=== PATIENT | female | born 1960 | race Caucasian/White ===

== ENCOUNTER → 2020-08-22 | Outpatient (CLI) | payer BC ==
[2014-07-27 05:59] VITALS: BP 147/87
--- NOTE | 2020-08-22 12:51 | KCIC ---
INDICATION: Screening for osteopenia/osteoporosis. Postmenopausal evaluation. COMPARISON: None. TECHNIQUE: Bone densitometry was performed through the lumbar spine and proximal femur. IMPRESSION: Lumbar Spine: BMD: 1.0 T-Score: -0.3 Range: Normal Proximal Femur: BMD: 0.95 T-Score: 0.1 Range: Normal World Health Organization Criteria for Bone Density: T-Score: > -1.0: Normal Range < -1.0 to -2.5: Osteopenic Range < -2.5: Osteoporotic Range Electronically signed by: Jan Espinoza MD (08/22/2020 12:48 PM) [id number]
== END ==
LOC: KCIC DEXA 11:15
PROVIDERS: ATTEND Nurse Practitioner Gerontology
DX: Z78.0 Asymptomatic menopausal state (principal)
CPT/HCPCS: 77080

== ENCOUNTER → 2020-10-02 | Outpatient (CLI) | payer BC ==
[2014-07-27 05:59] VITALS: BP 147/87
[~2020-10-02] MED LIST: ASCO500C PO; CALC500T54 PO; DIPH25CA58 PO; FERR-36 PO; FLUO20CA20 PO; LIALDA1.2 GM PO; TELM40TA7 PO; VITA1CAP PO
== END ==
LOC: LAB 13:52
PROVIDERS: ATTEND Obstetrics & Gynecology
DX: Z01.812 Encounter for preprocedural laboratory examination (principal); Z20.822 Contact with and (suspected) exposure to COVID-19
CPT/HCPCS: U0003; U0005

== ENCOUNTER 2020-10-05 07:44 | Day surgery (SDC) | payer BC ==
[~2020-10-05] VITALS: Ht 152.4 cm; Wt 66.0 kg
[~2020-10-05 07:44] MED LIST changes: -ASCO500C PO; -CALC500T54 PO; -DIPH25CA58 PO; -FERR-36 PO; -FLUO20CA20 PO; +HYDROmorphone 2 MG/ML VIAL IVP PRN; +IV RINGERS,LACTATED 1000ML 1,000 ML IV SCH; -LIALDA1.2 GM PO; +MORPHINE SULFATE 2 MG/ML VIAL. IVP PRN; +PROCHLORPERAZINE 10 MG/2 ML VIAL. IVP PRN; -TELM40TA7 PO; -VITA1CAP PO; +ceFAZolin SODIUM IV Push 1 GM VIAL. IVP PRN; +fentaNYL PF VIAL 100 MCG/2 ML VIAL IVP PRN
[2020-10-05] MEDS ORDERED: LIALDA1.2 GM PO (08:38)
[2020-10-05] MEDS ORDERED: TELM40TA7 PO (08:40)
[2020-10-05] MEDS ORDERED: ASCO500C PO (08:41)
[2020-10-05] MEDS ORDERED: FLUO20CA20 PO (08:41)
[2020-10-05] MEDS ORDERED: FERR-36 PO (08:42)
[2020-10-05] MEDS ORDERED: MIDAZOLAM HCL/PF 2 MG/2 ML VIAL. ONE (08:46)
[2020-10-05] MEDS ORDERED: SEVOFLURANE 31 TO 60 MINUTES. IH ONE (08:46)
[2020-10-05] MEDS ORDERED: ONDANSETRON PF 4 MG/2 ML VIAL. ONE (08:47)
[2020-10-05] MEDS ORDERED: LIDOCAINE 2% PF 5 ML VIAL. ONE (08:47)
[2020-10-05] MEDS ORDERED: fentaNYL PF VIAL 100 MCG/2 ML VIAL ONE (08:47)
[2020-10-05] MEDS ORDERED: VITA1CAP PO (08:47)
[2020-10-05] MEDS ORDERED: PROPOFOL 10 MG/ML (20ML) VIAL. IV ONE (08:47)
[2020-10-05] MEDS ORDERED: DEXAMETHASONE SOD PHOS 4 MG/ML VIAL ONE (08:47)
[2020-10-05] MEDS ORDERED: CALC500T54 PO (08:47)
[2020-10-05] MEDS ORDERED: DIPH25CA58 PO (08:49)
[2020-10-05] MEDS ORDERED: ePHEDrine PF IN SALINE 50 MG/10 ML SYRINGE. IV ONE (09:55)
--- NOTE | 2020-10-05 10:47 | PDOC ---
BRIEF OPERATIVE NOTE Date: Oct 05, 2020 Pre-Op Diagnosis AUB Endometrial polyp Post-Op Diagnosis SAme + Endometrial Fibroid Procedure Performed Op [facility] Surgeon Dr. Pereyra Anesthesia Type: General Blood Loss 10 ml Specimens Obtained endometrial polyp and endometrial fibroid Findings enlarged uterus with polyps and 2 cm fibroid Complications none Operative Note see dictation EDE PEREYRA Jr, MD Oct 05, 2020 10:47
--- NOTE | 2020-10-05 10:50 | DISCH ---
DISCHARGE INSTRUCTIONS Condition on Discharge Condition on Discharge: Stable Activity After Discharge Activity Instructions for Disc: Activity as tolerated Lifting Instructions after Dis: No heavy lifting Driving Instructions after Dis: Do not drive today Diet after Discharge Diet after Discharge: Regular Contacting the DRImelda after DC Call your doctor for: Concerns you may have Follow-Up Follow up with: Dr. Tellez in 1 week EDE TELLEZ Jr, MD Oct 05, 2020 10:50
--- NOTE | 2020-10-05 11:12 | OP ---
DATE OF SURGERY: PREOPERATIVE DIAGNOSES: 1. Abnormal uterine bleeding. 2. Endometrial polyp. POSTOPERATIVE DIAGNOSES: 1. Abnormal uterine bleeding. 2. Endometrial polyp. 3. Endometrial fibroid. PROCEDURE: Operative hysteroscopy. SURGEON: Koffi Pereyra MD ANESTHESIA: GETA. ESTIMATED BLOOD LOSS: 10 mL. COMPLICATIONS: None. FINDINGS: Enlarged uterus with polyps and 2 cm fibroid. SUMMARY: A 60-year-old with abnormal uterine bleeding and endometrial polyp, diagnosed in the office, required operative hysteroscopy for polypectomy. The patient was counseled on risks, benefits and expectations and voiced clear understanding to proceed. DESCRIPTION OF PROCEDURE: The patient was taken to surgery suite and placed in dorsal lithotomy position. She was prepped with Betadine solution and draped in sterile fashion. After adequate anesthesia, weighted speculum and curved [place] was placed vaginally. The anterior lip of the cervix grasped with single tooth tenaculum. Cervix was dilated with Hegar dilators up to size 7. The TruClear device was then placed. There were about 4 polyps, which were removed with the TruClear device. There was a 2 cm endometrial fibroid that was visualized and removed with TruClear device as well. The endometrial cavity was then homogenous. The TruClear device was removed along with single tooth tenaculum and weighted speculum. The patient tolerated the procedure well and was taken to recovery room in stable condition. Sponge and needle count correct x 3. KOFFI PEREYRA MD DR: JAME/tiesha JOB#: [id number] / [id number]
[2020-10-05 11:37] VITALS: BP 125/75
--- NOTE | 2020-10-16 13:19 | PATHOLOGY ---
[facility] Accession Number: [id number] . 01 Material submitted: . endometrium - ENDOMETRIAL POLYP FIBROID . 01 Clinical history: . OPERATIVE HYSTEROSCOPY WITH TRUCLEAR ENDOMETRIAL POLYP WITH FIBROID . 02 Diagnosis: Endometrial curettings: - Atrophic endometrium. - Multiple segments of smooth muscle consistent with leiomyoma. (JPM:everardo; 10/09/2020) MBR 10/09/2020 1712 Local . 02 Comment: There is no atypia or evidence of malignancy. (JPM:everardo; 10/09/2020) . 02 Electronically signed: . Brayan Anguiano MD, Pathologist NPI- [id number] . 01 Gross description: . Received in formalin and labeled "Fish, Peggy and endometrial polyp and fibroid". Received are multiple fibrous white-yellow soft tissue fragments measuring in aggregate 2.3 x 2.0 x 0.3 cm. Specimen is entirely submitted in cassette A1. ([facility]; 10/06/2020) [facility] 10/09/20201710 Local . 02 Pathologist provided ICD-10: N85.8 . 02 CPT . 787964 Specimen Comment: A courtesy copy of this report has been sent to [phone] Specimen Comment: Report sent to Specimen Comment: A duplicate report has been generated due to demographic updates. Performed at: 01 [facility] [address] [facility] [address], [place] [id number] MD Jerzy Weaver MD Phone: [phone] Performed at: 02 [facility] [address] [place], [place] [id number] MD Brayan Anguiano MD Phone: [phone]
== END 2020-10-05 12:04 | disposition home or self-care (01) ==
LOC: SURG 07:44
PROVIDERS: ATTEND Obstetrics & Gynecology
DX: N93.8 Other specified abnormal uterine and vaginal bleeding (principal); N84.0 Polyp of corpus uteri; D26.1 Other benign neoplasm of corpus uteri; F32.9 Major depressive disorder, single episode, unspecified; Z87.891 Personal history of nicotine dependence; Z79.899 Other long term (current) drug therapy; Z98.890 Other specified postprocedural states
CPT/HCPCS: 58558; 88305; A4930; C1782; J1100; J2250; J2405; J2704; J3010